=== PATIENT | female | born 1990 | race African-American/Black ===

== ENCOUNTER 2017-05-17 00:02 | Emergency (ER) | payer MEDICAID ==
[~2017-05-17] VITALS: Ht 170.2 cm; Wt 82.9 kg
[2017-05-17] MEDS ORDERED: IBUPROFEN 600MG TABLET PO SCH (05:15)
[2017-05-17 05:40] VITALS: BP 109/78
== END 2017-05-17 05:45 | disposition home or self-care (01) ==
LOC: ER 00:02
DX: S93.402A Sprain of unspecified ligament of left ankle, initial encounter (principal); X50.1XXA Overexertion from prolonged static or awkward postures, initial encounter; Y93.89 Activity, other specified; Y92.89 Other specified places as the place of occurrence of the external cause
CPT/HCPCS: 29515; 73630; 81025; 99284

== ENCOUNTER 2017-10-27 00:09 | Observation (INO) | payer MEDICAID ==
[~2017-10-27] VITALS: Ht 170.2 cm; Wt 79.4 kg
[2017-10-27] MEDS ORDERED: PREN1TAB78 MT (00:51)
== END 2017-10-27 02:05 | disposition home or self-care (01) ==
LOC: L&D 00:09
PROVIDERS: ADMIT Specialist; ATTEND Specialist
DX: O46.92 Antepartum hemorrhage, unspecified, second trimester (principal); O26.892 Other specified pregnancy related conditions, second trimester; R10.30 Lower abdominal pain, unspecified; Z3A.21 21 weeks gestation of pregnancy
CPT/HCPCS: 76805; 76817; 99281; G0378